=== PATIENT | male | born 1970 | race Caucasian/White ===

== ENCOUNTER 2018-06-30 23:59 | Emergency (ER) | payer BC, OTHER ==
[2018-07-01 01:45] LABS: ALT/SGPT 28 U/L (12-78); AST/SGOT 17 U/L (15-37); Albumin 3.7 g/dL (3.4-5.0); Alkaline Phosphatase 52 U/L (45-117); BUN Blood Urea Nitrogen 6 mg/dL (7-18); Bicarbonate 27 mmol/L (21-32); Bilirubin Total 0.2 mg/dL (0.2-1.0); Glucose Level 132 mg/dL (74-106); Potassium 3.8 mmol/L (3.5-5.1); Protein, Total 6.8 g/dL (6.4-8.2); Sodium Level 144 mmol/L (136-145)
--- NOTE | 2018-07-01 03:07 | EDPHYS ---
Physician Documentation [facility] Name: Haseeb Sahni Age: 48 yrs Sex: Male : 1970 Arrival Date: 07/01/2018 Time: 00:04 Bed 14 Private MD: Junior Harper T ED Physician Frannie Dorado HPI: 07/01 01:03 This 48 yrs old Male presents to ER via Ambulatory with complaints of ma2 Difficulty Swallowing. 01:03 The patient presents with dysphagia. Onset: The symptoms/episode began/occurred ma2 gradually, 3 month(s) ago. Severity of symptoms: At their worst the symptoms were mild, in the emergency department the symptoms are unchanged. Severity of symptoms: At their worst the symptoms were in the emergency department the symptoms have resolved. The patient has not experienced similar symptoms in the past. - Immunization history:: Adult Immunizations not immunized. - Social history:: Smoking status: Patient uses tobacco products, chewing tobacco, Patient/guardian denies using alcohol, street drugs, The patient lives with family. - Ebola Screening: : No symptoms or risks identified at this time. - Family history:: not pertinent. ROS: 01:03 Abdomen/GI: Positive for dysphagia, Negative for abdominal pain, nausea, diarrhea, ma2 abdominal cramps, rectal pain, flatulence. 01:03 All other systems are negative. 03:07 Neck: Negative for injury, pain, and swelling, Cardiovascular: Negative for chest pain, ma2 palpitations, and edema. Exam: 01:03 Constitutional: This is a well developed, well nourished patient who is awake, alert, ma2 and in no acute distress. Head/Face: Normocephalic, atraumatic. Chest/axilla: Normal chest wall appearance and motion. Nontender with no deformity. No lesions are appreciated. Cardiovascular: Regular rate and rhythm with a normal S1 and S2. No gallops, murmurs, or rubs. Normal PMI, no JVD. No pulse deficits. Respiratory: Lungs have equal breath sounds bilaterally, clear to auscultation and percussion. No rales, rhonchi or wheezes noted. No increased work of breathing, no retractions or nasal flaring. Abdomen/GI: Soft, non-tender, with normal bowel sounds. No distension or tympany. No guarding or rebound. No evidence of tenderness throughout. Neuro: Awake and alert, GCS 15, oriented to person, place, time, and situation. Cranial nerves II-XII grossly intact. Motor strength 5/5 in all extremities. Sensory grossly intact. Cerebellar exam normal. Normal gait. Vital Signs: 00:26 BP 141 / 105; Pulse 84; Resp 18; Temp 97.6; Pulse Ox 99% on R/A; Weight 83.91 kg; ea Height 5 ft. 7 in. (170.18 cm); Pain 7/10; 01:00 BP 130 / 80; Pulse 80; Resp 18; Pulse Ox 98% ; ea 02:55 BP 128 / 70; Pulse 87; Resp 16; Pulse Ox 97% on R/A; ea 03:15 BP 130 / 68; Pulse 78; Resp 18; Temp 98(O); Pulse Ox 98% on R/A; ea 00:26 Body Mass Index 28.97 (83.91 kg, 170.18 cm) ea MDM: 00:17 Patient medically screened. [facility] 01:03 Differential diagnosis: lymphoma, mononucleosis, radiation retropharyngeal abcess ma2 squamous cell carcinoma tracheobronchitis, viral syndrome. 03:06 Data reviewed: vital signs, nurses notes. Counseling: I had a detailed discussion with maJeff the patient and/or guardian regarding: the historical points, exam findings, and any diagnostic results supporting the discharge/admit diagnosis, the presence of at least one elevated blood pressure reading (>120/80) during this emergency department visit, the need for outpatient follow up. Response to treatment: the patient's symptoms have resolved after treatment. 07/01 01:02 Order name: CMP; Complete Time: 02:36 [facility] 07/01 01:02 Order name: CT Chest W/ Con ma2 Administered Medications: No medications were administered Disposition: 07/01/18 03:07 Discharged to Home. Impression: Dysphagia. - Condition is Stable. - Medication Reconciliation Form, Thank You Letter, Antibiotic Education, Prescription Opioid Use form. - Follow up: Private Physician; When: Tomorrow; Reason: Continuance of care. Signatures: Dispatcher [employer] Mariella Lai RN RN ea Alzahri, Mohammad, MD MD ky2 Corrections: (The following items were deleted from the chart) 03:25 03:07 07/01/2018 03:07 Discharged to Home. Impression: Dysphagia. Condition is Stable. ea Forms are Medication Reconciliation Form, Thank You Letter, Antibiotic Education, Prescription Opioid Use. Follow up: Private Physician; When: Tomorrow; Reason: Continuance of care. ma2
--- NOTE | 2018-07-01 03:07 | ER ---
Nurse's Notes [facility] Name: Haseeb Sahni Age: 48 yrs Sex: Male : 1970 Arrival Date: 07/01/2018 Time: 00:04 Bed 14 Private MD: Junior Harper T Diagnosis: Dysphagia Presentation: 07/01 00:21 Presenting complaint: Patient states: Pt reports for the past year he has been having ea difficulty swallowing, states "I ate something tonight and had to vomit four times before I felt relief" Pt reports food feels like it is getting stuck in esophagus. Transition of care: patient was not received from another setting of care. Onset of symptoms was July 01, 2018. Risk Assessment: Do you want to hurt yourself or someone else? Patient reports no desire to harm self or others. Initial Sepsis Screen: Does the patient meet any 2 criteria? No. Patient's initial sepsis screen is negative. Does the patient have a suspected source of infection? No. Patient's initial sepsis screen is negative. Care prior to arrival: None. 00:21 Method Of Arrival: Ambulatory ea 00:21 Acuity: ESTEBAN 3 ea Triage Assessment: 00:24 General: Appears in no apparent distress. Behavior is calm, cooperative, appropriate ea for age. General: Smells of alcohol. Pain: Complains of pain in epigastric area Pain currently is 7 out of 10 on a pain scale. Quality of pain is described as feels like a hole in my stomach. Neuro: Level of Consciousness is awake, alert, obeys commands, Oriented to person, place, time, situation. Cardiovascular: Patient's skin is warm and dry. Respiratory: Airway is patent Respiratory effort is even, unlabored, Respiratory pattern is regular, symmetrical, Breath sounds are clear bilaterally. GI: Abdomen is non-distended, Bowel sounds present X 4 quads. Derm: Skin is pink, warm \\T\\ dry. - Immunization history:: Adult Immunizations not immunized. - Social history:: Smoking status: Patient uses tobacco products, chewing tobacco, Patient/guardian denies using alcohol, street drugs, The patient lives with family. - Ebola Screening: : No symptoms or risks identified at this time. - Family history:: not pertinent. Screenin:28 Abuse screen: Denies threats or abuse. Nutritional screening: No deficits noted. ea Tuberculosis screening: No symptoms or risk factors identified. Fall Risk None identified. Assessment: 00:28 Reassessment: see triage assessment. ea 02:10 Reassessment: Patient and/or family updated on plan of care and expected duration. Pain ea level reassessed. Patient is alert, oriented x 3, equal unlabored respirations, skin warm/dry/pink. Pt taken to CT. 03:19 Reassessment: Patient and/or family updated on plan of care and expected duration. Pain ea level reassessed. Patient is alert, oriented x 3, equal unlabored respirations, skin warm/dry/pink. Discharge instructions given to patient, verbalized the understanding of instruction Patient states feeling better. Patient states symptoms have improved. Vital Signs: 00:26 BP 141 / 105; Pulse 84; Resp 18; Temp 97.6; Pulse Ox 99% on R/A; Weight 83.91 kg; ea Height 5 ft. 7 in. (170.18 cm); Pain 7/10; 01:00 BP 130 / 80; Pulse 80; Resp 18; Pulse Ox 98% ; ea 02:55 BP 128 / 70; Pulse 87; Resp 16; Pulse Ox 97% on R/A; ea 03:15 BP 130 / 68; Pulse 78; Resp 18; Temp 98(O); Pulse Ox 98% on R/A; ea 00:26 Body Mass Index 28.97 (83.91 kg, 170.18 cm) ea ED Course: 00:04 Patient arrived in ED. am2 00:04 Junior Harper MD is Private Physician. am2 00:14 Mariella Mane RN is Primary Nurse. ea 00:17 Frannie Dorado MD is Attending Physician. ma2 00:24 Triage completed. ea 00:24 Arm band placed on right wrist. Patient placed in an exam room, on a stretcher, on ea pulse oximetry. 00:24 Patient has correct armband on for positive identification. Bed in low position. Call ea light in reach. Side rails up X2. 02:25 Radiology exam delayed due to IV insertion attempt and/or patient not having kw1 appropriate IV at this time. 02:31 CT Chest W/ Con In Process Unspecified. EDMS 02:[address] via wheelchair. kw1 02:45 CT completed. Patient tolerated procedure well. Patient moved back from CT. kw1 03:18 No provider procedures requiring assistance completed. IV discontinued, intact, ea bleeding controlled, No redness/swelling at site. Pressure dressing applied. Administered Medications: No medications were administered Outcome: 03:07 Discharge ordered by . nahid 03:19 Condition: improved ea 03:19 Discharge instructions given to patient, Instructed on discharge instructions, follow up and referral plans. Demonstrated understanding of instructions, follow-up care. 03:25 Patient left the ED. ea Signatures: Dispatcher [employer] EDWI Marion Epps amMariella Rooney, RN RN Kaia Sierra kw1 Frannie Dorado MD MD ma2
--- NOTE | 2018-07-01 13:46 | RAD REPORT ---
EXAM DESCRIPTION: CT - Thorax W/ Con CLINICAL HISTORY: Chest pain dysphagia COMPARISON: No comparisons FINDINGS: The lungs are clear. No pleural thickening or pleural effusion. No pneumothorax. No axillary, mediastinal or hilar adenopathy. No concerning bony finding. No gross upper abdominal finding. All CT scans are performed using dose optimization technique as appropriate and may include automated exposure control or mA/KV adjustment according to patient size. IMPRESSION: Negative study.
== END 2018-07-01 03:25 | disposition home or self-care (01) ==
LOC: ER 23:59
DX: R13.10 Dysphagia, unspecified (principal); F17.220 Nicotine dependence, chewing tobacco, uncomplicated
CPT/HCPCS: 36415; 71260; 80053; 99284; Q9967